=== PATIENT | female | born 1950 | race Caucasian/White ===

== ENCOUNTER → 2017-03-02 | Outpatient (CLI) | payer MEDICARE, OTHER ==
--- NOTE | 2017-03-02 16:07 | RAD ---
DATE: 03/02/2017 EXAM: DIGITAL SCREEN BILAT W/CAD HISTORY: Baseline asymptomatic screening mammogram. COMPARISON: None available. Baseline examination. This study was interpreted with the benefit of Computerized Aided Detection (CAD). The breast parenchyma is primarily fatty replaced. Breast parenchyma level density A. FINDINGS: Bilateral CC and MLO views of the breasts were performed. Right breast: There is a focal asymmetry in the lateral right breast along the posterior nipple line on MLO view. Additional views are recommended including a spot compression CC and MLO view with possible ultrasound. Left breast: There are no suspicious microcalcifications, masses or areas of architectural distortion. IMPRESSION: 1. Incomplete right mammogram. Additional views are recommended including a spot compression CC and MLO view with possible ultrasound. 2. Negative left mammogram. BI-RADS CATEGORY: 0 INCOMPLETE: NEEDS ADDITIONAL IMAGING EVALUATION AND/OR PRIOR MAMMOGRAMS FOR COMPARISON. RECOMMENDED FOLLOW-UP: ADD ADDITIONAL IMAGING PQRS compliance statement: Mammography is a sensitive method for finding small breast cancers, but it does not detect them all and is not a substitute for careful clinical examination. A negative mammogram does not negate a clinically suspicious finding and should not result in delay in biopsying a clinically suspicious abnormality. "Our facility is accredited by the [employer] Mammography Program."
== END | disposition home or self-care (01) ==
LOC: MAMMO 15:39
PROVIDERS: ATTEND Family Medicine
DX: Z12.31 Encounter for screening mammogram for malignant neoplasm of breast (principal)
CPT/HCPCS: G0202; 77067

== ENCOUNTER → 2017-03-24 | Outpatient (CLI) | payer MEDICARE, OTHER ==
--- NOTE | 2017-03-24 15:46 | RAD ---
DATE: 03/24/2017 EXAM: DIGITAL DIAGNOSTIC RT, BREAST RIGHT HISTORY: Possible abnormality seen on screening 03/02/2017 COMPARISON: 03/02/2017 FINDINGS: Breast Density: The breast density is unchanged relative to the screening exam Multiple additional views including cone compression views and rolled cc views and an ML view were obtained. On the additional views an area of increased density persists but this does not have a masslike appearance and likely reflects glandular elements. Targeted ultrasound was performed no abnormality is seen in the area of the nodular opacity. IMPRESSION: Probable benign findings. Follow-up mammography of the right breast is suggested in 6 months to further document stability BI-RADS CATEGORY: 3 PROBABLE BENIGN FINDING(S-SHORT INTERVAL FOLLOW-UP SUGGESTED RECOMMENDED FOLLOW-UP: 6M 6 MONTH FOLLOW-UP PQRS compliance statement: Patient information was entered into a reminder system with a target due date 09/21/2017 for the next mammogram. Mammography is a sensitive method for finding small breast cancers, but it does not detect them all and is not a substitute for careful clinical examination. A negative mammogram does not negate a clinically suspicious finding and should not result in delay in biopsying a clinically suspicious abnormality. "Our facility is accredited by the [employer] Mammography Program." MTDD
== END | disposition home or self-care (01) ==
LOC: MAMMO 13:21
PROVIDERS: ATTEND Family Medicine
DX: R92.8 Other abnormal and inconclusive findings on diagnostic imaging of breast (principal)
CPT/HCPCS: 76641; G0206; 77065

== ENCOUNTER → 2017-06-23 | Day surgery (SDC) | payer MEDICARE, OTHER ==
[~2017-06-23] MED LIST: AMLO10TA2 PO; APIX5TAB PO; ATOR40TA59 PO; CHOL10003 PO; DILT120C80 PO; EMPA25TA PO; HYDROmorphone 2 MG/ML VIAL IV PRN; IV RINGERS,LACTATED 1000ML 1,000 ML IV SCH; LIDOCAINE 1% PF 2 ML VIAL. ID PRN; LIDOCAINE 2% PF Vial for OR 5 ML VIAL. ONE; LISI-334 PO; METF850T2 PO; METO-239 PO; MORPHINE SULFATE 2 MG/ML DISP.SYRIN. IV PRN; ONDANSETRON PF 4 MG/2 ML VIAL. IV PRN; PROCHLORPERAZINE 10 MG/2 ML VIAL. IV PRN; PROPOFOL 40 ML IV ONE; fentaNYL PF VIAL 100 MCG/2 ML VIAL IV PRN
[2017-06-23 08:56] VITALS: BP 96/64
--- NOTE | 2017-06-23 13:53 | CONS ---
DATE OF CONSULTATION: 06/23/2017 REFERRING PHYSICIAN: Dr. Hughes. HISTORY OF PRESENT ILLNESS: A 66-year-old female with past medical history significant for hypertension, hyperlipidemia, diabetes who is seen for a screening colonoscopy. Bowel habits are regular without diarrhea or constipation and melena and/or constipation. Weight and appetite are stable. She is otherwise without additional complaints. PAST MEDICAL HISTORY: Diabetes, hypertension, hyperlipidemia. FAMILY HISTORY: Significant for breast cancer, hypertension, MIs with parents and breast cancer with sibling. She is a former smoker. She is a social drinker. PAST SURGICAL HISTORY: Status post tonsillectomy. REVIEW OF SYSTEMS: Per records. PHYSICAL EXAMINATION: GENERAL: A well-nourished, well-developed female. VITAL SIGNS: Temperature is 97.6, pulse 82, respirations 20. HEENT: Normocephalic and atraumatic. Pupils and extraocular not tested. Anicteric. NECK: Supple. LUNGS: Clear. CARDIOVASCULAR: Reveals an S1, S2 without S3, S4 or appreciable murmur. ABDOMEN: Soft abdomen, normal bowel sounds. No appreciable splenomegaly. EXTREMITIES: Reveals no cyanosis, clubbing, edema. IMPRESSION: Colorectal screening is warranted at this time. Risks and benefits of the procedure had been previously discussed including risk of hemorrhage or perforation. She is willing to proceed. DREW WHATLEY MD DR: CHLOÉ/suyapa JOB#: [id number] / [id number]
--- NOTE | 2017-06-24 14:31 | PATHOLOGY ---
PATHOLOGY REPORT * * * * * * * * FINAL DIAGNOSIS: Colon biopsies, transverse colon polyp: - Tubular adenoma. (JPM:hodan; 06/24/2017) COMMENT: There is no high-grade dysplasia or evidence of malignancy. REPORT ELECTRONICALLY SIGNED BY: Jer Berg M.D. DATE/TIME: 06/24/2017 14:31 * * * * * * * * GROSS PATHOLOGY: Received in formalin labeled "Jarrdo Alanis transverse colon polyp," are 2 segments of balbuena soft tissue measuring 0.8 x 0.4 x 0.3 cm in aggregate dimensions and ranging from 0.3 to 0.6 cm in maximum dimension. The specimen is submitted entirely in cassette A1. (TSD; 06/23/2017) INITIAL CPT CODE(S): A; 73337 Professional services performed by [facility] [place] [address] Technical services performed by [facility] at [address] [place] [address]. SPECIMEN(S) RECEIVED: A.Transverse colon polyp CLINICAL HISTORY: Screening; polyp PATIENT: JARROD ALANIS /AGE: 5 1950 (Age: 66) PATIENT #: [id number] ALT CASE #: SPECIMEN COLLECTION DATE: 06/23/2017 SPECIMEN RECEIVED DATE: 06/23/2017 [facility] - [address] [place] [address] - PHONE: [phone] * * * END OF REPORT * * *
== END | disposition home or self-care (01) ==
LOC: ENDOS 06:30
PROVIDERS: ATTEND Internal Medicine Gastroenterology
DX: Z12.11 Encounter for screening for malignant neoplasm of colon (principal); D12.3 Benign neoplasm of transverse colon; K64.0 First degree hemorrhoids; K57.30 Diverticulosis of large intestine without perforation or abscess without bleeding; E78.00 Pure hypercholesterolemia, unspecified; I10 Essential (primary) hypertension; E11.9 Type 2 diabetes mellitus without complications; Z86.39 Personal history of other endocrine, nutritional and metabolic disease
CPT/HCPCS: 88305; J2704; J2001

== ENCOUNTER → 2017-07-30 | Outpatient (CLI) | payer MEDICARE, OTHER ==
[2017-07-30] MEDS: REGADENOSON 0.4 MG/5 ML DISP.SYRIN. IV (10:43)
== END | disposition home or self-care (01) ==
LOC: NM 14:34
DX: I48.91 Unspecified atrial fibrillation (principal); I10 Essential (primary) hypertension; E11.9 Type 2 diabetes mellitus without complications; Z87.891 Personal history of nicotine dependence; Z79.01 Long term (current) use of anticoagulants
CPT/HCPCS: 78452; 93017; 96374; 96375; 96376; A9500; J2785

== ENCOUNTER 2017-08-30 10:36 | Day surgery (SDC) | payer MEDICARE, OTHER ==
[~2017-08-30 10:36] MED LIST changes: -AMLO10TA2 PO; -APIX5TAB PO; -ATOR40TA59 PO; +BENZOCAINE ONE 20% MUCOSAL SPRAY.; +BENZOCAINE ONE 20% MUCOSAL SPRAY. MM; -CHOL10003 PO; -DILT120C80 PO; -EMPA25TA PO; +HYDROmorphone 2 MG/ML VIAL IV; -HYDROmorphone 2 MG/ML VIAL IV PRN; -IV RINGERS,LACTATED 1000ML 1,000 ML IV SCH; +LIDOCAINE 1% PF 2 ML VIAL. ID; -LIDOCAINE 1% PF 2 ML VIAL. ID PRN; -LIDOCAINE 2% PF Vial for OR 5 ML VIAL. ONE; +LIDOCAINE 2% TOPICAL JELLY 5GM TUBE. TP; +LIDOCAINE 2% VISCOUS 15 ML SOLUTION.; +LIDOCAINE 2% VISCOUS 15 ML SOLUTION. SWSW; -LISI-334 PO; -METF850T2 PO; -METO-239 PO; +MORPHINE SULFATE 2 MG/ML DISP.SYRIN. IV; -MORPHINE SULFATE 2 MG/ML DISP.SYRIN. IV PRN; -ONDANSETRON PF 4 MG/2 ML VIAL. IV PRN; +PROCHLORPERAZINE 10 MG/2 ML VIAL. IV; -PROCHLORPERAZINE 10 MG/2 ML VIAL. IV PRN; -PROPOFOL 40 ML IV ONE; +fentaNYL PF VIAL 100 MCG/2 ML VIAL IV; -fentaNYL PF VIAL 100 MCG/2 ML VIAL IV PRN
[2017-08-30] MEDS: IV RINGERS,LACTATED 1000ML 1,000 ML IV ×2 (11:20)
[2017-08-30 11:27] LABS: ANION GAP 11 (6-14); BLOOD UREA NITROGEN 19 mg/dL (7-20); CARBON DIOXIDE 25 mmol/L (21-32); CHLORIDE 105 mmol/L (98-107); CREATININE 0.8 mg/dL (0.6-1.0); GFR 71.8; GLUCOSE 143 mg/dL (70-99); MAGNESIUM 1.6 mg/dL (1.8-2.4); POTASSIUM 4.3 mmol/L (3.5-5.1); SODIUM 141 mmol/L (136-145)
[2017-08-30] MEDS ORDERED: PROPOFOL 20 ML IV ×2 (11:27)
[2017-08-30] MEDS ORDERED: LIDOCAINE 2% PF Vial for OR 5 ML VIAL. ×2 (11:27)
[2017-08-30 11:45] LABS: INR 1.3 (0.8-1.1); PROTHROMBIN TIME PATIENT 15.1 SEC (11.7-14.0)
[2017-08-30] MEDS ORDERED: ePHEDrine PF IN SALINE 50 MG/5 ML DISP.SYRIN IV (12:00)
== END 2017-08-30 13:12 | disposition home or self-care (01) ==
LOC: SURG 10:36
DX: I48.91 Unspecified atrial fibrillation (principal); E78.00 Pure hypercholesterolemia, unspecified; I10 Essential (primary) hypertension; E66.9 Obesity, unspecified; E11.9 Type 2 diabetes mellitus without complications; Z87.891 Personal history of nicotine dependence; Z87.39 Personal history of other diseases of the musculoskeletal system and connective tissue; Z86.39 Personal history of other endocrine, nutritional and metabolic disease
CPT/HCPCS: 36415; 80048; 83735; 85610; 93005; J2704

== ENCOUNTER → 2017-09-27 | Outpatient (CLI) | payer MEDICARE, OTHER | END | disposition home or self-care (01) | LOC: MAMMO 09:23 | DX: R92.8 Other abnormal and inconclusive findings on diagnostic imaging of breast (principal) | CPT/HCPCS: 77065; G0279 ==

== ENCOUNTER 2018-01-21 08:28 | Inpatient (IN) | payer MEDICARE, OTHER ==
[2018-01-21 09:02] LABS: ADD MAN DIFF? NO
[2018-01-21 09:06] LABS: BASO # 0.1 x10^3/uL (0.0-0.2); BASO % 1 % (0-3); EOS # 0.5 x10^3/uL (0.0-0.7); EOS % 6 % (0-3); HEMATOCRIT 44.3 % (36.0-47.0); HEMOGLOBIN 14.8 g/dL (12.0-15.5); LYMPH % 27 % (24-48); MEAN CORPUSCULAR HEMOGLOBIN 32 pg (25-35); MEAN CORPUSCULAR HGB CONC 33 g/dL (31-37); MEAN CORPUSCULAR VOLUME 97 fL (79-100); MONO # 0.5 x10^3/uL (0.0-1.1); MONO % 7 % (0-9); NEUT # 4.3 x10^3uL (1.8-7.7); NEUT % 58 % (31-73); PLATELET COUNT 191 x10^3/uL (140-400); RED BLOOD COUNT 4.57 x10^6/uL (3.50-5.40); RED CELL DISTRIBUTION WIDTH 13.7 % (11.5-14.5); WHITE BLOOD COUNT 7.4 x10^3/uL (4.0-11.0)
[2018-01-21 09:14] LABS: ANION GAP 6 (6-14); BLOOD UREA NITROGEN 15 mg/dL (7-20); CALCIUM 9.1 mg/dL (8.5-10.1); CARBON DIOXIDE 29 mmol/L (21-32); CHLORIDE 103 mmol/L (98-107); CREATININE 0.9 mg/dL (0.6-1.0); GFR 62.5; GLUCOSE 170 mg/dL (70-99); POTASSIUM 4.4 mmol/L (3.5-5.1); SODIUM 138 mmol/L (136-145)
[2018-01-21 09:23] LABS: TROPONINI < 0.017 ng/mL (0.000-0.055)
[2018-01-21] MEDS ORDERED: hydrALAZINE 20 MG/ML VIAL. IVP (11:00)
[2018-01-21] MEDS: LISINOPRIL 20 MG TABLET PO (12:00)
[2018-01-21] MEDS: ASPIRIN ENTERIC COATED 81 MG TABLET.DR. PO (12:00)
[2018-01-21 12:05] LABS: THYROID STIM HORMONE (TSH) 2.751 uIU/mL (0.358-3.74)
[2018-01-21] MEDS: INSULIN LISPRO 300 UNITS/3 ML INSULN.PEN. SQ ×2 (16:30→20:59)
[2018-01-21 17:05] LABS: TROPONINI < 0.017 ng/mL (0.000-0.055)
[2018-01-21 17:30] LABS: POC GLUCOSE 113 mg/dL (70-99)
[2018-01-21 20:54] LABS: POC GLUCOSE 111 mg/dL (70-99)
[2018-01-21] MEDS: ATORVASTATIN CALCIUM 40 MG TABLET. PO (20:58)
[2018-01-21] MEDS ORDERED: ATORVASTATIN CALCIUM 40 MG TABLET. PO (21:00)
[2018-01-22 05:01] LABS: ADD MAN DIFF? NO
[2018-01-22 05:23] LABS: BASO # 0.1 x10^3/uL (0.0-0.2); BASO % 1 % (0-3); EOS # 0.3 x10^3/uL (0.0-0.7); EOS % 5 % (0-3); HEMATOCRIT 38.8 % (36.0-47.0); HEMOGLOBIN 12.8 g/dL (12.0-15.5); LYMPH # 2.1 x10^3/uL (1.0-4.8); LYMPH % 34 % (24-48); MEAN CORPUSCULAR HEMOGLOBIN 32 pg (25-35); MEAN CORPUSCULAR HGB CONC 33 g/dL (31-37); MEAN CORPUSCULAR VOLUME 97 fL (79-100); MONO # 0.5 x10^3/uL (0.0-1.1); MONO % 8 % (0-9); NEUT # 3.2 x10^3uL (1.8-7.7); NEUT % 52 % (31-73); PLATELET COUNT 151 x10^3/uL (140-400); RED BLOOD COUNT 4.01 x10^6/uL (3.50-5.40); RED CELL DISTRIBUTION WIDTH 13.6 % (11.5-14.5); WHITE BLOOD COUNT 6.2 x10^3/uL (4.0-11.0)
[2018-01-22 05:39] LABS: ANION GAP 6 (6-14); BLOOD UREA NITROGEN 16 mg/dL (7-20); CALCIUM 9.1 mg/dL (8.5-10.1); CARBON DIOXIDE 30 mmol/L (21-32); CHLORIDE 105 mmol/L (98-107); CREATININE 0.7 mg/dL (0.6-1.0); GFR 83.5; GLUCOSE 96 mg/dL (70-99); POTASSIUM 4.1 mmol/L (3.5-5.1); SODIUM 141 mmol/L (136-145)
[2018-01-22] MEDS: INSULIN LISPRO 300 UNITS/3 ML INSULN.PEN. SQ ×4 (07:30→20:37)
[2018-01-22 08:18] LABS: POC GLUCOSE 107 mg/dL (70-99)
[2018-01-22] MEDS: LISINOPRIL 20 MG TABLET PO (09:11)
[2018-01-22] MEDS: CHOLECALCIFEROL (VITAMIN D3) 1,000 UNIT TABLET PO (09:11)
[2018-01-22] MEDS: ASPIRIN ENTERIC COATED 81 MG TABLET.DR. PO (09:11)
[2018-01-22 09:29] LABS: MAGNESIUM 1.8 mg/dL (1.8-2.4)
[2018-01-22] MEDS ORDERED: ceFAZolin 2GM PREMIX 2 GM/50 ML BAG IV (11:00)
[2018-01-22 12:42] LABS: POC GLUCOSE 108 mg/dL (70-99)
[2018-01-22 17:02] LABS: POC GLUCOSE 92 mg/dL (70-99)
[2018-01-22] MEDS: ATORVASTATIN CALCIUM 40 MG TABLET. PO ×2 (20:36→20:40)
[2018-01-22 20:58] LABS: POC GLUCOSE 102 mg/dL (70-99)
[2018-01-22] MEDS: DIGOXIN IV 500 MCG/2 ML AMPUL. IV (22:14)
[2018-01-23] MEDS: METOPROLOL TART IMMED RELEASE 25 MG TABLET. PO ×4 (01:47→18:01)
[2018-01-23] MEDS: INSULIN LISPRO 300 UNITS/3 ML INSULN.PEN. SQ ×4 (07:30→20:49)
[2018-01-23 08:34] LABS: POC GLUCOSE 101 mg/dL (70-99)
[2018-01-23] MEDS: CHOLECALCIFEROL (VITAMIN D3) 1,000 UNIT TABLET PO (08:45)
[2018-01-23] MEDS: ASPIRIN ENTERIC COATED 81 MG TABLET.DR. PO (08:46)
[2018-01-23] MEDS: LISINOPRIL 20 MG TABLET PO (08:46)
[2018-01-23 11:36] LABS: POC GLUCOSE 113 mg/dL (70-99)
[2018-01-23 17:32] LABS: POC GLUCOSE 89 mg/dL (70-99)
[2018-01-23] MEDS: ATORVASTATIN CALCIUM 40 MG TABLET. PO (20:49)
[2018-01-23 20:52] LABS: POC GLUCOSE 112 mg/dL (70-99)
[2018-01-24] MEDS: METOPROLOL TART IMMED RELEASE 25 MG TABLET. PO ×4 (06:00→18:00)
[2018-01-24] MEDS: INSULIN LISPRO 300 UNITS/3 ML INSULN.PEN. SQ ×4 (07:30→21:00)
[2018-01-24 08:05] LABS: POC GLUCOSE 104 mg/dL (70-99)
[2018-01-24] MEDS: ASPIRIN ENTERIC COATED 81 MG TABLET.DR. PO (09:38)
[2018-01-24] MEDS: METOPROLOL TARTRATE 5 MG/5 ML VIAL. IVP ×2 (09:39→15:10)
[2018-01-24 10:28] LABS: PROTHROMBIN TIME PATIENT 12.8 SEC (11.7-14.0)
[2018-01-24 12:13] LABS: POC GLUCOSE 111 mg/dL (70-99)
[2018-01-24] MEDS ORDERED: LIDOCAINE 2%/EPI 1:100,000 20 ML VIAL. (13:02)
[2018-01-24] MEDS ORDERED: MIDAZOLAM HCL/PF 5 MG/5 ML VIAL. (13:44)
[2018-01-24] MEDS ORDERED: fentaNYL PF VIAL 250 MCG/5 ML VIAL (13:45)
[2018-01-24] MEDS ORDERED: METOPROLOL TARTRATE 5 MG/5 ML VIAL. ×2 (13:52→14:31)
[2018-01-24] MEDS ORDERED: DIGOXIN IV 500 MCG/2 ML AMPUL. (14:15)
[2018-01-24] MEDS: LIDOCAINE 2%/EPI 1:100,000 20 ML VIAL. IJ (15:09)
[2018-01-24] MEDS: BACITRACIN 50,000 UNIT in IV NORMAL SALINE 250ML 250 ML IRR (15:09)
[2018-01-24] MEDS: MIDAZOLAM HCL/PF 5 MG/5 ML VIAL. IV (15:10)
[2018-01-24] MEDS: fentaNYL PF VIAL 250 MCG/5 ML VIAL IV (15:10)
[2018-01-24] MEDS: DIGOXIN IV 500 MCG/2 ML AMPUL. IV (15:11)
[2018-01-24] MEDS: CHOLECALCIFEROL (VITAMIN D3) 1,000 UNIT TABLET PO (16:18)
[2018-01-24] MEDS: LISINOPRIL 20 MG TABLET PO (16:18)
[2018-01-24] MEDS ORDERED: NO ANTICOAGULANT THERAPY. MC (16:45)
[2018-01-24 21:02] LABS: POC GLUCOSE 123 mg/dL (70-99)
[2018-01-24] MEDS: ATORVASTATIN CALCIUM 40 MG TABLET. PO (21:20)
[2018-01-24] MEDS: oxyCODONE/APAP 5/325 1 TAB TABLET PO (21:21)
[2018-01-25] MEDS: METOPROLOL TART IMMED RELEASE 25 MG TABLET. PO ×2 (00:38→06:38)
[2018-01-25] MEDS: oxyCODONE/APAP 5/325 1 TAB TABLET PO ×2 (03:53→10:24)
[2018-01-25] MEDS: INSULIN LISPRO 300 UNITS/3 ML INSULN.PEN. SQ (07:30)
[2018-01-25 08:02] LABS: POC GLUCOSE 112 mg/dL (70-99)
[2018-01-25] MEDS: ASPIRIN ENTERIC COATED 81 MG TABLET.DR. PO (08:31)
[2018-01-25] MEDS: CHOLECALCIFEROL (VITAMIN D3) 1,000 UNIT TABLET PO (08:32)
[2018-01-25] MEDS: LISINOPRIL 20 MG TABLET PO (08:32)
[2018-01-25] MEDS: metFORMIN XR 500 MG TAB.ER.24H PO (08:34)
[2018-01-25 11:55] LABS: POC GLUCOSE 113 mg/dL (70-99)
== END 2018-01-25 13:45 | disposition home or self-care (01) | DRG 243 ==
LOC: ER 08:28 → 2 NORTH 10:00
PROC: 0JH606Z Insertion of Pacemaker, Dual Chamber into Chest Subcutaneous Tissue and Fascia, Open Approach (ICD-10-PCS; principal; 2018-01-24)
PROC: 02H63JZ Insertion of Pacemaker Lead into Right Atrium, Percutaneous Approach (ICD-10-PCS; 2018-01-24)
PROC: 02HK3JZ Insertion of Pacemaker Lead into Right Ventricle, Percutaneous Approach (ICD-10-PCS; 2018-01-24)
DX: I49.5 Sick sinus syndrome (principal); I48.1 Persistent atrial fibrillation; I44.1 Atrioventricular block, second degree; I10 Essential (primary) hypertension; E11.9 Type 2 diabetes mellitus without complications; I25.10 Atherosclerotic heart disease of native coronary artery without angina pectoris; F32.9 Major depressive disorder, single episode, unspecified; F41.9 Anxiety disorder, unspecified; E66.9 Obesity, unspecified; M10.9 Gout, unspecified; M19.90 Unspecified osteoarthritis, unspecified site; E78.5 Hyperlipidemia, unspecified; Z95.5 Presence of coronary angioplasty implant and graft; Z79.01 Long term (current) use of anticoagulants; Z79.899 Other long term (current) drug therapy; I25.2 Old myocardial infarction; Z68.30 Body mass index [BMI] 30.0-30.9, adult; Z82.49 Family history of ischemic heart disease and other diseases of the circulatory system; Z87.891 Personal history of nicotine dependence
CPT/HCPCS: 33217; 36415; 71045; 71046; 80048; 82962; 83735; 84443; 84484; 85025; 85610; 93005; 99152; 99153; 99285; 99285-25; C1785; C1898; J0690; J1160; J1815; J2250; J3010; J3490; J7050

== ENCOUNTER → 2018-04-13 | Outpatient (CLI) | payer MEDICARE, OTHER ==
[2018-01-24 23:10] VITALS: BP 122/70
[~2018-04-13] MED LIST changes: +AMLO10TA6 PO; +APIX5TAB PO; +ASPI-612 PO; +ATOR40TA59 PO; -BENZOCAINE ONE 20% MUCOSAL SPRAY.; -BENZOCAINE ONE 20% MUCOSAL SPRAY. MM; +CHOL10003 PO; +DILT120C80 PO; +EMPA25TA PO; +FLEC100T PO; -HYDROmorphone 2 MG/ML VIAL IV; -LIDOCAINE 1% PF 2 ML VIAL. ID; -LIDOCAINE 2% TOPICAL JELLY 5GM TUBE. TP; -LIDOCAINE 2% VISCOUS 15 ML SOLUTION.; -LIDOCAINE 2% VISCOUS 15 ML SOLUTION. SWSW; +LISI-334 PO; +METF750T PO; +METF850T8 PO; +METO-239 PO; +METO-247 PO; -MORPHINE SULFATE 2 MG/ML DISP.SYRIN. IV; +OXYC1TAB7 PO; -PROCHLORPERAZINE 10 MG/2 ML VIAL. IV; +RIVA20TA2 PO; -fentaNYL PF VIAL 100 MCG/2 ML VIAL IV
--- NOTE | 2018-04-14 08:32 | RAD ---
DATE: 04/13/2018 bilateral diagnostic mammogram exam EXAM: MAMMO SUMEET DIAG BILAT HISTORY: Six-month follow-up of right breast asymmetry COMPARISON: 03/02/2017 screen mammographic exam, right unilateral diagnostic mammogram exam 03/24/2017, 09/27/2017) lateral diagnostic mammographic This study was interpreted with the benefit of Computerized Aided Detection (CAD ). Breast Density: SCATTERED The breast parenchyma shows scattered fibroglandular densities. Breast parenchyma level B. FINDINGS: Parenchymal distribution is stable. No significant change involving the right upper outer breast. No mass or distortion in the interval. No suspicious calcifications in the interval. Right axillary level lymph node is suggested but stable and benign in appearance. IMPRESSION: BI-RADS CATEGORY: 2 BENIGN FINDING(S) RECOMMENDED FOLLOW-UP: PQRS compliance statement: Patient information was entered into a reminder system with a target due date in 1 year for the next mammogram. Mammography is a sensitive method for finding small breast cancers, but it does not detect them all and is not a substitute for careful clinical examination. A negative mammogram does not negate a clinically suspicious finding and should not result in delay in biopsying a clinically suspicious abnormality. "Our facility is accredited by the [employer] Mammography Program." MTDD
== END | disposition home or self-care (01) ==
LOC: MAMMO 09:21
PROVIDERS: ATTEND Family Medicine
DX: R92.8 Other abnormal and inconclusive findings on diagnostic imaging of breast (principal)
CPT/HCPCS: 77066; G0279; 77062

== ENCOUNTER → 2019-02-28 | Day surgery (SDC) | payer MEDICARE ==
[~2019-02-28] VITALS: Ht 167.6 cm; Wt 107.0 kg
[~2019-02-28] MED LIST changes: -AMLO10TA6 PO; +AMLO10TA8 PO; +BUPIVAC MPF-EPI 0.5%-1:200000 30 ML VIAL. INJ ONE; +BUPIVACAINE MPF 0.25% 30 ML VIAL. ONE; +BUPIVACAINE-EPI 0.25%-1:200000 MPF 30 ML VIAL. INJ ONE; +DILT120C71 PO; -DILT120C80 PO; +DILT120C85 PO; +HYDR-3164 PO; +HYDROmorphone 2 MG/ML VIAL IV PRN; +INSULIN LISPRO 100 UNIT/ML 3ML VIAL for OP,RR ONLY. SQ PRN; +IV RINGERS,LACTATED 1000ML 1,000 ML IV SCH; +LIDOCAINE 1% 20 ML VIAL. ONE; +LIDOCAINE 2% PF 5 ML VIAL. ONE; +METO100T7 PO; +MIDAZOLAM HCL/PF 2 MG/2 ML VIAL. ONE; +MORPHINE SULFATE 2 MG/ML VIAL. IV PRN; +ONDANSETRON PF 4 MG/2 ML VIAL. IV PRN; +PROCHLORPERAZINE 10 MG/2 ML VIAL. IV PRN; +fentaNYL PF VIAL 100 MCG/2 ML VIAL IV PRN; +fentaNYL PF VIAL 100 MCG/2 ML VIAL ONE
--- NOTE | 2019-02-28 09:55 | DISCH ---
DISCHARGE INSTRUCTIONS Condition on Discharge Condition on Discharge: Stable Activity After Discharge Activity Instructions for Disc: Other, see below (avoid hard grasping with right hand, fine motor use permitted such as using silverware typing and writing etc.) Weight Bearing Status after Di: As tolerated Diet after Discharge Diet after Discharge: Cardiac, Diabetic No Calorie Level Wound Incision Care Wound/Incision Care: Ice to area for comfort, Keep wound elevated, Do not change dressing Contacting the [facility] after DC Call your doctor for: Concerns you may have Follow-Up Follow up with: Dr. Sotelo 10 days Treatment/Equipment after DC Adaptive Equipment Issued: None ROHAN SOTELO MD Feb 28, 2019 09:55
--- NOTE | 2019-02-28 10:26 | PDOC4 ---
Operative Note Operative Note Date of surgery: 02/28/2019 Preoperative diagnosis: Right carpal tunnel syndrome and right trigger thumb Postoperative diagnosis: Same with moderate median nerve compression and some fraying flexor tendon right thumb Operative procedure: Right carpal tunnel release, right trigger thumb release Surgeon: Ashleigh Anesthesia: [place] block Cemented blood loss 2 mL Complications: None Operative indications: Please see my preoperative clinic evaluation for detailed operative indications and note that Anna has had ongoing carpal tunnel symptoms verified by EMG unresponsive to nonoperative management and off-and-on painful triggering of her right thumb. We had discussed operative and nonoperative treatment options for each including the pathophysiology of each and the possibility of nerve or blood vessel damage incomplete relief infection medical or other anesthetic competitions among other she agrees to proceed with surgical evaluation and treatment having given informed consent. Operative text: Patient was identified procedure verified patient placed in the supine position on the table. After adequate amounts of Adeola block anesthesia were administered the right upper extremity was prepped and draped in standard sterile fashion and after timeout was performed a midline incision was made distal to the distal palmar crease dissection carried out to the transverse carpal ligament which was divided longitudinally under direct visualization and verified complete release by palpation. Median nerve was noted to have moderate compression no synovitis of the flexor tendons in the carpal tunnel. Attention was then turned to the base of the right thumb where a small transverse incision was made her vascular tunnels were isolated and protected and a longitudinal incision was made dividing the A1 flexor vanessa. She was noted to have some mild fraying of the flexor tendon itself but did not require repair triggering was completely eliminated thorough irrigation carried out normal saline solution closure accomplished with nylon suture in a mattress fashion sterile dressings were applied fingers were noted be warm pink find deflation of tourniquet patient was returned recovery room in stable condition having tolerated procedure well ROHAN GANT MD Feb 28, 2019 10:26
[2019-02-28 11:10] VITALS: BP 169/96
== END ==
LOC: SURG 07:31
PROVIDERS: ATTEND Orthopaedic Surgery
DX: G56.01 Carpal tunnel syndrome, right upper limb (principal); M65.311 Trigger thumb, right thumb; Z79.899 Other long term (current) drug therapy
CPT/HCPCS: 26055; 64721; 82962; J0696; J2001; J2250; J3010; J3490

== ENCOUNTER → 2019-04-12 | Outpatient (CLI) | payer MEDICARE ==
[2019-02-28 11:10] VITALS: BP 169/96
[~2019-04-12] MED LIST changes: -BUPIVAC MPF-EPI 0.5%-1:200000 30 ML VIAL. INJ ONE; -BUPIVACAINE MPF 0.25% 30 ML VIAL. ONE; -BUPIVACAINE-EPI 0.25%-1:200000 MPF 30 ML VIAL. INJ ONE; -HYDROmorphone 2 MG/ML VIAL IV PRN; -INSULIN LISPRO 100 UNIT/ML 3ML VIAL for OP,RR ONLY. SQ PRN; -IV RINGERS,LACTATED 1000ML 1,000 ML IV SCH; -LIDOCAINE 1% 20 ML VIAL. ONE; -LIDOCAINE 2% PF 5 ML VIAL. ONE; -MIDAZOLAM HCL/PF 2 MG/2 ML VIAL. ONE; -MORPHINE SULFATE 2 MG/ML VIAL. IV PRN; -ONDANSETRON PF 4 MG/2 ML VIAL. IV PRN; -PROCHLORPERAZINE 10 MG/2 ML VIAL. IV PRN; -fentaNYL PF VIAL 100 MCG/2 ML VIAL IV PRN; -fentaNYL PF VIAL 100 MCG/2 ML VIAL ONE
--- NOTE | 2019-04-14 16:34 | RAD ---
DATE: 04/12/2019 EXAM: MAMMO SUMEET SCREENING BILATERAL HISTORY: Routine screening COMPARISON: 03/02/2017 and 04/13/2018 mammographic exams This study was interpreted with the benefit of Computerized Aided Detection (CAD). Breast Density: SCATTERED The breast parenchyma shows scattered fibroglandular densities. Breast parenchyma level B. FINDINGS: Small masses are stable. No suspicious calcifications, dominant masses, or distortion in the interval. IMPRESSION: Stable BI-RADS CATEGORY: 1 NEGATIVE RECOMMENDED FOLLOW-UP: 12M 12 MONTH FOLLOW-UP PQRS compliance statement: Patient information was entered into a reminder system with a target due date for the next mammogram. Mammography is a sensitive method for finding small breast cancers, but it does not detect them all and is not a substitute for careful clinical examination. A negative mammogram does not negate a clinically suspicious finding and should not result in delay in biopsying a clinically suspicious abnormality. "Our facility is accredited by the [employer] Mammography Program."
== END | disposition home or self-care (01) ==
LOC: MAMMO 07:41
PROVIDERS: ATTEND Family Medicine
DX: Z12.31 Encounter for screening mammogram for malignant neoplasm of breast (principal)
CPT/HCPCS: 77063; 77067

== ENCOUNTER → 2020-04-15 | Outpatient (CLI) | payer MEDICARE ==
[2019-02-28 11:10] VITALS: BP 169/96
[~2020-04-15] MED LIST changes: -ASPI-612 PO; +ASPI-886 PO; -DILT120C85 PO; +DILT120C99 PO
--- NOTE | 2020-04-16 08:44 | RAD ---
BILATERAL SCREENING MAMMOGRAM, 3-D History: Routine screening. Comparison: 03/02/2017, 04/13/2018, 04/12/2019. Technique: MLO and CC digital tomosynthesis (3D) images obtained. Radiologist reviewed these images on dedicated workstation. Findings: Breast Tissue Density B : There are scattered areas of fibroglandular density. There are no dominant masses, suspicious microcalcifications, or architectural distortion. IMPRESSION: No mammographic evidence of malignancy. Recommend routine screening. BI-RADS category 1: Negative. The images were reviewed with computer-aided detection. Patient information is entered into reminder system with a target due date for the next screening mammogram. Mammography is the most sensitive method for finding small breast cancers, but it does not detect them all and is not a substitute for careful clinical examination. A negative mammogram does not negate a clinically suspicious finding and should not result in delay in biopsying a clinically suspicious abnormality. "Our facility is accredited by the [employer] Mammography Program." Electronically signed by: Andrew Mas MD (04/16/2020 8:41 AM) [facility]
== END | disposition home or self-care (01) ==
LOC: MAMMO 09:37
PROVIDERS: ATTEND Family Medicine
DX: Z12.31 Encounter for screening mammogram for malignant neoplasm of breast (principal)
CPT/HCPCS: 77063; 77067

== ENCOUNTER → 2020-10-28 | Outpatient (CLI) | payer MEDICARE ==
[2019-02-28 11:10] VITALS: BP 169/96
[~2020-10-28] MED LIST changes: +AMLO-187 PO; -AMLO10TA8 PO; -LISI-334 PO; +LISI20TA18 PO
--- NOTE | 2020-10-28 12:55 | CARD ---
MR#: [id number] Date of Study: 10/28/2020 Ordering Physician: JACKIE POON, Referring Physician: JACKIE POON, Tech: Tianna Strong, [facility] APPROVED REPORT EXAM: Two-dimensional and M-mode echocardiogram with Doppler and color Doppler. Other Information Quality : AverageHR: 60bpm Technically limited study due to body habitus. INDICATION Atrial Fibrillation Surgery/Intervention Pacemaker: Date: 2017 RISK FACTORS Hypertension Hyperlipidemia Diabetes 2D DIMENSIONS RVDd2.5 (2.9-3.5cm)Left Atrium(2D)3.7 (1.6-4.0cm) IVSd1.1 (0.7-1.1cm)Aortic Root(2D)3.0 (2.0-3.7cm) LVDd5.5 (3.9-5.9cm)LVOT Diameter2.0 (1.8-2.4cm) PWd1.0 (0.7-1.1cm)LVDs2.3 (2.5-4.0cm) FS (%) 58.1 %SV127.5 ml Aortic Valve AoV Peak Norris.147.0cm/sAoV VTI30.9cm AO Peak GR.8.6mmHgAO Mean GR.5mmHg Mitral Valve MV E Orakmovv65.8cm/sMV DECEL HSWW130zl MV A Wogvfaxe540.5cm/sMV GHM414bf E/A Ratio0.9MVA (PHT)2.14cm2 TDI E/Lateral E'15.0E/Medial E'16.4 Pulmonary Valve PV Peak Ulhoxtfz70.4cm/sPV Peak Grad.3mmHg Tricuspid Valve TR P. Ehdyufnc646oe/sRAP YAFWAZRU2syIo TR Peak Gr.22chZyUQPR06bhHu Pulmonary Vein S1 Ekrzqnqh10.0cm/sD2 Kivivhpz04.6cm/s LEFT VENTRICLE The left ventricle is normal size. There is mild concentric left ventricular hypertrophy. The left ve ntricular systolic function is normal and the ejection fraction is within normal range. The Ejection Fraction is 55-60. There is normal LV segmental wall motion. Transmitral Doppler flow pattern is Grad e I-abnormal relaxation pattern. RIGHT VENTRICLE The right ventricle is normal size. There is normal right ventricular wall thickness. The right ventr icular systolic function is normal. There is a device lead in the right ventricle. ATRIA The left atrium is borderline dilated. The right atrium size is normal. The interatrial septum is int act with no evidence for an atrial septal defect or patent foramen ovale as noted on 2-D or Doppler i maging. AORTIC VALVE The aortic valve is calcified but opens well. Doppler and Color Flow revealed trace aortic regurgitat ion. There is no significant aortic valvular stenosis. Calculated aortic valve area is cm2 with maxim um pressure gradient of 12 mmHg and mean pressure gradient of 7 mmHg. MITRAL VALVE Mitral annular calcification is mild. There is no evidence of mitral valve prolapse. There is no mitr al valve stenosis. Doppler and Color-flow revealed trace mitral regurgitation. TRICUSPID VALVE The tricuspid valve is normal in structure and function. Doppler and Color Flow revealed trace tricus pid regurgitation with an estimated PAP of 28 mmHg. There is no tricuspid valve stenosis. PULMONIC VALVE The pulmonic valve is not well visualized. Doppler and Color Flow revealed trace pulmonic valvular re gurgitation. GREAT VESSELS The aortic root is normal in size. The IVC is normal in size and collapses >50% with inspiration. PERICARDIAL EFFUSION There is no evidence of significant pericardial effusion. Critical Notification Critical Value: No <Conclusion> The left ventricle is normal size. The left ventricular systolic function is normal and the ejection fraction is within normal range. The Ejection Fraction is 55-60. There is mild concentric left ventricular hypertrophy. Doppler and Color Flow revealed trace aortic regurgitation. There is no significant aortic valvular stenosis. Doppler and Color-flow revealed trace mitral regurgitation. Doppler and Color Flow revealed trace tricuspid regurgitation with an estimated PAP of 28 mmHg. Signed by : Osei Ramirez MD Electronically Approved : 10/28/2020 12:55:18
== END ==
LOC: ECHO 07:45
PROVIDERS: ATTEND Internal Medicine Cardiovascular Disease
DX: I08.0 Rheumatic disorders of both mitral and aortic valves (principal); I48.0 Paroxysmal atrial fibrillation
CPT/HCPCS: 93306

== ENCOUNTER → 2021-05-06 | Outpatient (CLI) | payer MEDICARE ==
[2019-02-28 11:10] VITALS: BP 169/96
--- NOTE | 2021-05-06 16:15 | RAD ---
Bilateral digital screening 2-D and 3-D (digital breast tomosynthesis) mammogram: Reason for examination: Routine screening. Comparison: Mammograms from 04/15/2020 and 04/12/2019. Interpretation was made with the benefit of CAD. FINDINGS: Breast density: Category A. Breast tissue is almost entirely fatty. No suspicious breast mass, malignant appearing calcifications, or architectural distortion is seen. IMPRESSION: No evidence of malignancy. Assessment: BI-RADS 1. Negative. Recommendation: Routine screening mammograms. The patient will receive a letter with the results in the mail. Patient information will be entered i nto the mammography reminder system with a target recall date for the next mammogram. A reminder philipp er will be generated. Electronically signed by: Rissa Fu MD (05/06/2021 4:13 PM) [id number]
== END ==
LOC: MAMMO 12:49
PROVIDERS: ATTEND Family Medicine
DX: Z12.31 Encounter for screening mammogram for malignant neoplasm of breast (principal)
CPT/HCPCS: 77063; 77067

== ENCOUNTER 2021-07-08 10:31 | Outpatient (CLI) | payer MEDICARE ==
[~2021-07-08] VITALS: Ht 165.1 cm; Wt 106.8 kg
[2021-07-08] VITALS (17 sets, daily range): BP systolic 145–226; BP diastolic 62–94
[2021-07-08] MEDS ORDERED: hydrALAZINE 20 MG/ML VIAL. ONE (11:25)
[2021-07-08] MEDS ORDERED: hydrALAZINE 20 MG/ML VIAL. IVP ONE (11:30)
[2021-07-08 11:35] LABS: CALCIUM 9.4 mg/dL (8.5-10.1); CREATININE 0.7 mg/dL (0.6-1.0); GFR 82.7; HEMATOCRIT 42.9 % (36.0-47.0); HEMOGLOBIN 14.2 g/dL (12.0-15.5); POTASSIUM 3.9 mmol/L (3.5-5.1); RED BLOOD COUNT 4.58 x10^6/uL (3.50-5.40); RED CELL DISTRIBUTION WIDTH 13.1 % (11.5-14.5); WHITE BLOOD COUNT 6.3 x10^3/uL (4.0-11.0)
[2021-07-08] MEDS ORDERED: VERA240C2 PO (11:37)
[2021-07-08 11:49] LABS: PROTHROMBIN TIME PATIENT 12.6 SEC (11.7-14.0)
[2021-07-08] MEDS ORDERED: IODIXANOL 320 MG/ML 100 ML VIAL. ONE (12:11)
[2021-07-08] MEDS ORDERED: LIDOCAINE 1% PF 2 ML VIAL. ONE (12:11)
[2021-07-08] MEDS ORDERED: fentaNYL PF VIAL 100 MCG/2 ML VIAL ONE (13:15)
[2021-07-08] MEDS ORDERED: NITROGLYCERIN 200 MCG/2 ML SYRINGE FOR CATH/VASC LAB. ONE (13:16)
[2021-07-08] MEDS ORDERED: VERAPAMIL 5 MG/2 ML VIAL. ONE (13:16)
[2021-07-08] MEDS ORDERED: HEPARIN for IV BOLUS 10,000 UNIT/10 ML VIAL. ONE (13:16)
[2021-07-08] MEDS ORDERED: MIDAZOLAM HCL/PF 2 MG/2 ML VIAL. ONE (13:16)
[2021-07-08] MEDS ORDERED: HEPARIN for IV BOLUS 10,000 UNIT/10 ML VIAL. IART ONE (13:30)
[2021-07-08] MEDS ORDERED: IODIXANOL 320 MG/ML 100 ML VIAL. IART ONE (13:30)
[2021-07-08] MEDS ORDERED: fentaNYL PF VIAL 100 MCG/2 ML VIAL IV ONE (13:30)
[2021-07-08] MEDS ORDERED: LIDOCAINE 1% PF 2 ML VIAL. INJ ONE (13:30)
[2021-07-08] MEDS ORDERED: VERAPAMIL 5 MG/2 ML VIAL. IART ONE (13:30)
[2021-07-08] MEDS ORDERED: MIDAZOLAM HCL/PF 2 MG/2 ML VIAL. IV ONE (13:30)
[2021-07-08] MEDS ORDERED: NITROGLYCERIN 200 MCG/2 ML SYRINGE FOR CATH/VASC LAB. IART ONE (13:30)
[2021-07-08] MEDS ORDERED: CONTRAST GIVEN. MC PRN (14:15)
--- NOTE | 2021-07-08 15:17 | CARD ---
MR#: [id number] Date of Study: 07/08/2021 Ordering Physician: JACKIE POON, Referring Physician: JACKIE POON, Tech: RT Flaco(R) APPROVED REPORT Technologist: RT Flaco(R) Nurse: Janelle Cox RN Procedure(s) performed: 25MIN MODERATE SEDATION FT 2.6 43 CONTRAST 49.5GYMC2 494 DOSE LHC, coronary angiography INDICATION The indication(s) include : positive stress test. [facility] Clinical Frailty Scale [facility] Clinical Frailty Scale: Mildly Frail Heart Failure Heart Failure: Yes If Yes, Newly Diagnosed: No If Yes, HF Type: Diastolic If Yes, NYHA Class: Class II CASE TECHNIQUE IV conscious sedation was used throughout procedure with appropriate monitoring and was performed in the presence of a registered nurse who was an independent trained observer other than the physician p erforming the procedure. During this case, Fluoroscopy and low osmolar contrast were used for imaging . Specimen(s) Removed: N/A Estimated Blood loss: 15 cc's. PROCEDURE NARRATIVE Clinical information: 70-year-old woman presents to the Accounts Receivable Analyst for dyspnea and abnormal stress test. Informed consent: Written informed consent was obtained from the patient after adequate discussion of the risks and mary efits of the procedure. Procedure details: ACCESS: The right wrist was prepped and draped in usual sterile fashion. Under 1% lidocaine local anesthesia a 6 [place] Terumo sheath was placed in the right radial artery via the Seldinger technique. DIAGNOSTIC ANGIOGRAPHY: Right and left coronary arteries were engaged with a 6 [place] TIG catheter. Diagnostic angiography i n multiple views were obtained. Next, a 6 [place] TIG catheter was placed in the left ventricle and a LVEDP was measured. A pullback was performed. All catheters were exchanged over J-tip guidewire. FINDINGS: ======= Aorta: 140/80 LVEDP: 15 mmHg Left ventriculogram: Deferred due to known normal LV systolic function on recent stress testing Coronary angiography: LM: Large caliber vessel with normal angiographic appearance LAD: Moderate caliber tortuous vessel with mild luminal irregularities of up to 30% and tapers to a s mall caliber distally. Ramus: Moderate caliber vessel with mild luminal irregularities. LCX: Moderate caliber non-dominant vessel with mild luminal irregularities OM1: Small caliber tortuous vessel with mild luminal irregularities RCA: Large caliber dominant tortuous vessel with mild diffuse irregularities of up to 30% RPDA: Moderate caliber dominant vessel that feeds the apex with mild luminal irregularities CLOSURE: At case completion the right radial sheath was removed and a Terumo radial band was applied with 11 m L of air. Hemostasis was achieved. COMPLICATIONS: No acute complications noted Conclusion 1. Normal left-sided filling pressures 2. One-vessel coronary artery disease with a patent distal RCA stent Recommendations Aggressive Medical Therapy Weight Loss Reduction Program Signed by : Jackie Poon, Electronically Approved : 07/08/2021 15:16:35
--- NOTE | 2021-07-08 16:23 | NUR ---
Discharge Note: JARROD MORTON Discharge instructions and discharge home medications reviewed with Patient and a copy given. All questions have been answered and understanding verbalized. Dressing to R wrist dry and intact, armboard in place. The following instructions and handouts were given: radial site care, sedation Pt instructed to restart Xarelto tomorrow and Metformin Wednesday. Discontinued lines and drains: Peripheral IV intact. Patient discharged to Home or Self Care with Family Member via Wheelchair [facility] Addendum: 07/08/21 at 1626 by DAVID VILLA RN Amended: Links added.
== END 2021-07-08 16:15 | disposition home or self-care (01) ==
LOC: CCL 10:31
PROVIDERS: ATTEND Internal Medicine Cardiovascular Disease
DX: R06.09 Other forms of dyspnea (principal); I25.10 Atherosclerotic heart disease of native coronary artery without angina pectoris; R94.39 Abnormal result of other cardiovascular function study; I10 Essential (primary) hypertension; I48.91 Unspecified atrial fibrillation; E78.00 Pure hypercholesterolemia, unspecified; E66.9 Obesity, unspecified; E11.9 Type 2 diabetes mellitus without complications; Z79.82 Long term (current) use of aspirin; Z79.84 Long term (current) use of oral hypoglycemic drugs; Z79.899 Other long term (current) drug therapy; Z87.891 Personal history of nicotine dependence; Z98.890 Other specified postprocedural states; Z88.8 Allergy status to other drugs, medicaments and biological substances
CPT/HCPCS: 36415; 80048; 85027; 85610; 93458; 99152; 99153; C1769; C1894; J0360; J1644; J2250; J3010; J3490; Q9967

== ENCOUNTER 2021-07-20 10:34 | Emergency (ER) | payer MEDICARE ==
[~2021-07-20] VITALS: Ht 167.6 cm; Wt 106.0 kg
[~2021-07-20 10:34] MED LIST changes: +VERA240C2 PO
[2021-07-20 11:29] LABS: BILIRUBIN,URINE NEGATIVE (NEG); CLARITY,URINE CLOUDY; COLOR,URINE AMBER; NITRITE,URINE NEGATIVE (NEG); PH,URINE 5.5 (<5.0-8.0); PROTEIN,URINE NEGATIVE (NEG-TRACE); UROBILINOGEN,URINE 0.2 mg/dL (0.2 mg/dL)
[2021-07-20 11:55] LABS: HYALINE CASTS, URINE OCCASIONAL /HPF; RBC,URINE TNTC /HPF (0-2)
[2021-07-20 11:56] LABS: BACTERIA,URINE MODERATE /HPF (0-FEW)
[2021-07-20 12:04] LABS: BASO # 0.1 x10^3/uL (0.0-0.2); BASO % 1 % (0-3); EOS # 0.2 x10^3/uL (0.0-0.7); EOS % 2 % (0-3); HEMATOCRIT 43.4 % (36.0-47.0); HEMOGLOBIN 14.8 g/dL (12.0-15.5); LYMPH # 1.8 x10^3/uL (1.0-4.8); LYMPH % 19 % (24-48); MEAN CORPUSCULAR HEMOGLOBIN 32 pg (25-35); MEAN CORPUSCULAR HGB CONC 34 g/dL (31-37); MEAN CORPUSCULAR VOLUME 93 fL (79-100); MONO # 0.7 x10^3/uL (0.0-1.1); MONO % 8 % (0-9); NEUT # 6.4 x10^3/uL (1.8-7.7); NEUT % 70 % (31-73); PLATELET COUNT 206 x10^3/uL (140-400); RED BLOOD COUNT 4.69 x10^6/uL (3.50-5.40); RED CELL DISTRIBUTION WIDTH 12.9 % (11.5-14.5); WHITE BLOOD COUNT 9.2 x10^3/uL (4.0-11.0)
[2021-07-20 12:14] LABS: CALCIUM 9.5 mg/dL (8.5-10.1); CREATININE 1.3 mg/dL (0.6-1.0); GFR 40.5; POTASSIUM 4.4 mmol/L (3.5-5.1)
[2021-07-20 12:20] LABS: ALBUMIN 3.8 g/dL (3.4-5.0); ALBUMIN/GLOBULIN RATIO 0.8 (1.0-1.7); TOTAL BILIRUBIN 1.3 mg/dL (0.2-1.0); TOTAL PROTEIN 8.5 g/dL (6.4-8.2)
--- NOTE | 2021-07-20 12:38 | PHYS DOC ---
Past Medical History Past Medical History: Anxiety, Arthritis, Depression, Diabetes-Type II, High Cholesterol, Hypertension Additional Past Medical Histor: GOUT Past Surgical History: Tonsillectomy Additional Past Surgical Histo: THYROID CYST REMOVAL Smoking Status: Former Smoker Alcohol Use: None Drug Use: None General Adult EDM: Chief Complaint: BACK PAIN - NO INJURY HPI: HPI: Patient is a 70 year old female who presents with low back pain. Reports 7 days ago began having vaginal spotting. The spotting then increased and she passed several clots and had. Levels of bleeding for approximately 3 days. The bleeding has since stopped and has not returned. This morning began having low back pain. It is a dull ache. Its on both sides of the lower back. She also noticed that her urine began having a darker color today. Denies abdominal pain, nausea, vomiting, bowel changes. Normal appetite. No fevers or chills. No vaginal discharge. No dysuria, urgency or frequency. Patient is postmenopausal and has not had vaginal bleeding in approximately 20 years. She saw her PCP about the vaginal bleeding and was referred to Dr. Fatima of gynecology. She has a pelvic ultrasound appointment for Tuesday 07/25, and an OB follow-up appointment on Friday 07/28. Review of Systems: Review of Systems: Constitutional: Denies fever or chills. [] Eyes: Denies change in visual acuity. [] HENT: Denies nasal congestion or sore throat. [] Respiratory: Denies cough or shortness of breath. [] Cardiovascular: Denies chest pain or edema. [] GI: Denies abdominal pain, nausea, vomiting, bloody stools or diarrhea. [] : Denies dysuria. Reports dark urine. Reports recent postmenopausal vaginal bleeding [] Musculoskeletal: Reports low back pain Integument: Denies rash. [] Neurologic: Denies headache, focal weakness or sensory changes. [] Endocrine: Denies polyuria or polydipsia. [] Lymphatic: Denies swollen glands. [] Psychiatric: Denies depression or anxiety. [] Heart Score: C/O Chest Pain: No Allergies: Allergies: Allergies Coded Allergies Type Severity Reaction Last Updated Verified zinc Allergy Severe Anaphylaxis 02/28/19 Yes Physical Exam: PE: Constitutional: Well developed, well nourished, no acute distress, non-toxic appearance. [] HENT: Normocephalic, atraumatic, bilateral external ears normal, oropharynx moist, no oral exudates, nose normal. [] Eyes: PERRLA, EOMI, conjunctiva normal, no discharge. [] Neck: Normal range of motion, no tenderness, supple, no stridor. [] Cardiovascular:Heart rate regular rhythm, no murmur [] Lungs & Thorax: Bilateral breath sounds clear to auscultation [] Abdomen: Soft, nondistended, nontender. Pelvic: [employer] with RIVAS Willis. External genitalia normal. No active bl eeding, thin whitish discharge. Cervix was partially visualized, appeared red/kenn and hypervascular concerning for mass. Tender to probing. [] Back: No tenderness, no CVA tenderness. [] Extremities: No tenderness, no cyanosis, no clubbing, ROM intact, no edema. [] Neurologic: Alert and oriented X 3, normal motor function, normal sensory function, no focal deficits noted. [] Psychologic: Affect normal, judgement normal, mood normal. [] Current Patient Data: Labs: Laboratory Tests Test 07/20/21 11:20 07/20/21 11:47 Urine Collection Type Unknown Urine Color Estelita Urine Clarity Cloudy Urine pH 5.5 (<5.0-8.0) Urine Specific Lupton 1.015 (1.000-1.030) Urine Protein Negative mg/dL (NEG-TRACE) Urine Glucose (UA) >=1000 mg/dL (NEG) Urine Ketones (Stick) Negative mg/dL (NEG) Urine Blood Large (NEG) Urine Nitrite Negative (NEG) Urine Bilirubin Negative (NEG) Urine Urobilinogen Dipstick 0.2 mg/dL (0.2 mg/dL) Urine Leukocyte Esterase Moderate (NEG) Urine RBC Tntc /HPF (0-2) Urine WBC 5-10 /HPF (0-4) Urine Squamous Epithelial Cells Few /LPF Urine Bacteria Moderate /HPF (0-FEW) Urine Hyaline Casts Occasional /HPF Urine Mucus Slight /LPF White Blood Count 9.2 x10^3/uL (4.0-11.0) Red Blood Count 4.69 x10^6/uL (3.50-5.40) Hemoglobin 14.8 g/dL (12.0-15.5) Hematocrit 43.4 % (36.0-47.0) Mean Corpuscular Volume 93 fL (79-100) Mean Corpuscular Hemoglobin 32 pg (25-35) Mean Corpuscular Hemoglobin Concent 34 g/dL (31-37) Red Cell Distribution Width 12.9 % (11.5-14.5) Platelet Count 206 x10^3/uL (140-400) Neutrophils (%) (Auto) 70 % (31-73) Lymphocytes (%) (Auto) 19 % (24-48) L Monocytes (%) (Auto) 8 % (0-9) Eosinophils (%) (Auto) 2 % (0-3) Basophils (%) (Auto) 1 % (0-3) Neutrophils # (Auto) 6.4 x10^3/uL (1.8-7.7) Lymphocytes # (Auto) 1.8 x10^3/uL (1.0-4.8) Monocytes # (Auto) 0.7 x10^3/uL (0.0-1.1) Eosinophils # (Auto) 0.2 x10^3/uL (0.0-0.7) Basophils # (Auto) 0.1 x10^3/uL (0.0-0.2) Sodium Level 137 mmol/L (136-145) Potassium Level 4.4 mmol/L (3.5-5.1) Chloride Level 99 mmol/L (98-107) Carbon Dioxide Level 24 mmol/L (21-32) Anion Gap 14 (6-14) Blood Urea Nitrogen 28 mg/dL (7-20) H Creatinine 1.3 mg/dL (0.6-1.0) H Estimated GFR (Cockcroft-Gault) 40.5 BUN/Creatinine Ratio 22 (6-20) H Glucose Level 269 mg/dL (70-99) H Calcium Level 9.5 mg/dL (8.5-10.1) Total Bilirubin 1.3 mg/dL (0.2-1.0) H Aspartate Amino Transferase (AST) 16 U/L (15-37) Alanine Aminotransferase (ALT) 23 U/L (14-59) Alkaline Phosphatase 107 U/L (46-116) Total Protein 8.5 g/dL (6.4-8.2) H Albumin 3.8 g/dL (3.4-5.0) Albumin/Globulin Ratio 0.8 (1.0-1.7) L Laboratory Tests 07/20/21 11:47 Laboratory Tests 07/20/21 11:47 Laboratory Tests Test 07/20/21 11:20 07/20/21 11:47 Urine Collection Type Unknown Urine Color Estelita Urine Clarity Cloudy Urine pH 5.5 Urine Specific Lupton 1.015 Urine Protein Negative mg/dL Urine Glucose (UA) >=1000 mg/dL Urine Ketones (Stick) Negative mg/dL Urine Blood Large Urine Nitrite Negative Urine Bilirubin Negative Urine Urobilinogen Dipstick 0.2 mg/dL Urine Leukocyte Esterase Moderate Urine RBC Tntc /HPF Urine WBC 5-10 /HPF Urine Squamous Epithelial Cells Few /LPF Urine Bacteria Moderate /HPF Urine Hyaline Casts Occasional /HPF Urine Mucus Slight /LPF White Blood Count 9.2 x10^3/uL Red Blood Count 4.69 x10^6/uL Hemoglobin 14.8 g/dL Hematocrit 43.4 % Mean Corpuscular Volume 93 fL Mean Corpuscular Hemoglobin 32 pg Mean Corpuscular Hemoglobin Concent 34 g/dL Red Cell Distribution Width 12.9 % Platelet Count 206 x10^3/uL Neutrophils (%) (Auto) 70 % Lymphocytes (%) (Auto) 19 % Monocytes (%) (Auto) 8 % Eosinophils (%) (Auto) 2 % Basophils (%) (Auto) 1 % Neutrophils # (Auto) 6.4 x10^3/uL Lymphocytes # (Auto) 1.8 x10^3/uL Monocytes # (Auto) 0.7 x10^3/uL Eosinophils # (Auto) 0.2 x10^3/uL Basophils # (Auto) 0.1 x10^3/uL Sodium Level 137 mmol/L Potassium Level 4.4 mmol/L Chloride Level 99 mmol/L Carbon Dioxide Level 24 mmol/L Anion Gap 14 Blood Urea Nitrogen 28 mg/dL Creatinine 1.3 mg/dL Estimated GFR (Cockcroft-Gault) 40.5 BUN/Creatinine Ratio 22 Glucose Level 269 mg/dL Calcium Level 9.5 mg/dL Total Bilirubin 1.3 mg/dL Aspartate Amino Transf (AST/SGOT) 16 U/L Alanine Aminotransferase (ALT/SGPT) 23 U/L Alkaline Phosphatase 107 U/L Total Protein 8.5 g/dL Albumin 3.8 g/dL Albumin/Globulin Ratio 0.8 EKG: EKG: [] Radiology/Procedures: Radiology/Procedures: [] Impression: [facility] [address] [place], [place] [id number] IMAGING REPORT Signed PATIENT: JARROD MORTON ACCOUNT: [id number] : 1950 LOCATION: ER AGE: 70 SEX: F EXAM STATUS: REG ER ORD. PHYSICIAN: SENAIT BERUMEN MD REASON: post-menopausal vaginal bleeding, low back pain;SONO CALLED PROCEDURE: PELVIS W/TV EXAMINATION: US PELVIS W/TV INDICATION: 70 years, Female, postmenopausal vaginal bleeding, low back pain. COMPARISON: None TECHNIQUE: Trans abdominal and transvaginal ultrasound of the pelvis was performed with grayscale, spectral, and color doppler imaging. FINDINGS: LMP: 20 years ago. UTERUS: Position: Anteverted, anteflexed Measures: 6.3 x 4.2 x 3.4 cm. Uterine/Endometrial Morphology: There is a 1.8 x 1.1 x 1.2 cm ill-defined hypoechoic lesion in the left posterior uterine body, suggesting of intramural fibroid. Endometrial Thickness: 0.8 cm, demonstrates heterogeneous echotexture with cystic changes. Bilateral ovaries are not visualized, due to overlying bowel gas. OTHER: Fluid/Cul-De-Sac: None. IMPRESSION: 1. Thickened endometrium measures 8mm, demonstrates heterogeneous echotexture with cystic changes. Differential includes endometrial hyperplasia versus carcinoma. Recommend further evaluation with direct visualization and tissue sampling. 2. Ill-defined 1.8 cm hypoechoic lesion in the left posterior uterine body, suggesting of an intramural fibroid. 3. Ovaries are not visualized, obscured by overlying bowel gas. Electronically signed by: Shantelle Baird MD (07/20/2021 2:36 PM) [id number] DICTATED and SIGNED BY: SHANTELLE BAIRD MD DATE: 07/20/21 [id number] 0 Course & Med Decision Making: Course & Med Decision Making Pertinent Labs and Imaging studies reviewed. (See chart for details) Patient is 70-year-old female who presents with recent postmenopausal vaginal bleeding, now with back pain and dark urine. Vital signs stable and well-appearing on exam. Pelvic exam with a hypervascular, dark red appearing cervix concerning for cervical mass. No active bleeding. Pelvic ultrasound pending. 1238 Pelvic ultrasound shows thickened endometrial lining, 8 mm, with cystic heterogenous appearance concerning for hyperplasia versus endometrial carcinoma. Patient counseled on these findings as well as my concerns about her cervical exam. Fortunately she has OB follow-up on 07/28. Urine also shows RBCs without significant WBCs. No dysuria, urgency, frequency to suggest urinary tract infection. Patient counseled on this finding and asked to follow-up with PCP for repeat urinalysis and consideration of further testing pending results Patient's back pain has not recurred since Tylenol this morning. Doubt kidney stone. Do not feel that further imaging in the emergency department is indicated at this time. 1502 Dragon Disclaimer: Dragon Disclaimer: This electronic medical record was generated, in whole or in part, using a voice recognition dictation system. Departure Departure Impression: Primary Impression: Cervix abnormality Additional Impressions: Endometrial thickening on ultrasound Abnormal uterine bleeding (AUB) Hematuria Disposition: HOME / SELF CARE / HOMELESS Condition: STABLE Referrals: TYLER ACHARYA MD (PCP) Schedule an appointment to discuss the blood that was found in your urine. You will likely need repeat urine testing, and potentially more testing if it continues to happen. TYLER FATIMA MD Schedule an appointment to discuss the thickening of your uterus lining as well as the abnormal appearance of your cervix on my exam. Additional Instructions: Your work-up today showed several concerning findings including blood in your urine, a thickened uterine lining, and an abnormal appearance of your cervix. Please follow-up with your primary care doctor for consideration of repeat testing of your urine to see if the blood persist. You may need further work-up if you continue to have blood in your urine. It is imperative that you follow-up with Dr. Fatima regarding your abnormal uterine and cervix findings in the emergency department. Please call his office to alert them of his findings and keep your appointment for 07/28. If you develop recurrent pain, high fevers, chills, or other new/concerning symptoms you can return to the emergency department at any time for reevaluation. SENAIT BERUMEN MD Jul 20, 2021 12:38
--- NOTE | 2021-07-20 14:38 | RAD ---
EXAMINATION: US PELVIS W/TV INDICATION: 70 years, Female, postmenopausal vaginal bleeding, low back pain. COMPARISON: None TECHNIQUE: Trans abdominal and transvaginal ultrasound of the pelvis was performed with grayscale, sp ectral, and color doppler imaging. FINDINGS: LMP: 20 years ago. UTERUS: Position: Anteverted, anteflexed Measures: 6.3 x 4.2 x 3.4 cm. Uterine/Endometrial Morphology: There is a 1.8 x 1.1 x 1.2 cm ill-defined hypoechoic lesion in the le ft posterior uterine body, suggesting of intramural fibroid. Endometrial Thickness: 0.8 cm, demonstrates heterogeneous echotexture with cystic changes. Bilateral ovaries are not visualized, due to overlying bowel gas. OTHER: Fluid/Cul-De-Sac: None. IMPRESSION: 1. Thickened endometrium measures 8mm, demonstrates heterogeneous echotexture with cystic changes. Di fferential includes endometrial hyperplasia versus carcinoma. Recommend further evaluation with direc t visualization and tissue sampling. 2. Ill-defined 1.8 cm hypoechoic lesion in the left posterior uterine body, suggesting of an intramur al fibroid. 3. Ovaries are not visualized, obscured by overlying bowel gas. Electronically signed by: Micky Baird MD (07/20/2021 2:36 PM) [id number]
[2021-07-20 15:23] VITALS: BP 139/63
== END 2021-07-20 15:28 | disposition home or self-care (01) ==
LOC: ER 10:34
DX: N93.9 Abnormal uterine and vaginal bleeding, unspecified (principal); E11.9 Type 2 diabetes mellitus without complications; R31.9 Hematuria, unspecified; N88.9 Noninflammatory disorder of cervix uteri, unspecified; I10 Essential (primary) hypertension; E78.00 Pure hypercholesterolemia, unspecified; Z87.891 Personal history of nicotine dependence; Z88.8 Allergy status to other drugs, medicaments and biological substances; R93.89 Abnormal findings on diagnostic imaging of other specified body structures
CPT/HCPCS: 36415; 76830; 76856; 80053; 81001; 85025; 87086; 99285-25

== ENCOUNTER 2021-08-22 06:31 | Day surgery (SDC) | payer MEDICARE ==
[~2021-08-22] VITALS: Ht 167.6 cm; Wt 104.5 kg
[~2021-08-22 06:31] MED LIST changes: +HYDROmorphone 2 MG/ML INJ. IVP PRN; +IV RINGERS,LACTATED 1000ML 1,000 ML IV SCH; +MORPHINE SULFATE 2 MG/ML INJ. IVP PRN; +PROCHLORPERAZINE 10 MG/2 ML VIAL. IVP PRN; +fentaNYL PF VIAL 100 MCG/2 ML VIAL IVP PRN
[2021-08-22 06:49] VITALS: BP 165/72
[2021-08-22] MEDS: INSULIN LISPRO 100 UNIT/ML 3ML VIAL for OP,RR ONLY. SQ PRN ×2 (07:23→08:49)
[2021-08-22] MEDS ORDERED: LIDOCAINE 2% PF 5 ML VIAL. ONE (07:30)
[2021-08-22] MEDS ORDERED: fentaNYL PF VIAL 100 MCG/2 ML VIAL ONE (07:30)
[2021-08-22] MEDS ORDERED: PROPOFOL 10 MG/ML (20ML) VIAL. IV ONE (07:30)
[2021-08-22] MEDS ORDERED: ONDANSETRON PF 4 MG/2 ML VIAL. ONE (07:32)
[2021-08-22] MEDS ORDERED: DEXAMETHASONE SOD PHOS 4 MG/ML VIAL ONE (07:32)
[2021-08-22 07:34] LABS: BASO # 0.1 x10^3/uL (0.0-0.2); BASO % 1 % (0-3); EOS # 0.2 x10^3/uL (0.0-0.7); EOS % 3 % (0-3); HEMOGLOBIN 13.5 g/dL (12.0-15.5); LYMPH # 2.6 x10^3/uL (1.0-4.8); LYMPH % 31 % (24-48); MEAN CORPUSCULAR HEMOGLOBIN 30 pg (25-35); MEAN CORPUSCULAR HGB CONC 33 g/dL (31-37); MEAN CORPUSCULAR VOLUME 92 fL (79-100); MONO # 0.7 x10^3/uL (0.0-1.1); MONO % 8 % (0-9); NEUT # 4.8 x10^3/uL (1.8-7.7); NEUT % 57 % (31-73); PLATELET COUNT 196 x10^3/uL (140-400); RED BLOOD COUNT 4.44 x10^6/uL (3.50-5.40); RED CELL DISTRIBUTION WIDTH 12.6 % (11.5-14.5); WHITE BLOOD COUNT 8.5 x10^3/uL (4.0-11.0)
[2021-08-22] MEDS ORDERED: ePHEDrine PF IN SALINE 50 MG/10 ML SYRINGE. IV ONE (08:13)
[2021-08-22] MEDS ORDERED: PHENYLEPHRINE in 0.9% NACL PF 1 MG/10 ML SYRINGE. IV ONE (08:13)
[2021-08-22] MEDS ORDERED: INSULIN LISPRO 100 UNIT/ML 3ML VIAL for OP,RR ONLY. SQ ONE ×2 (09:00)
[2021-08-22 09:07] VITALS: BP 118/67
--- NOTE | 2021-08-22 09:09 | PDOC4 ---
OPERATIVE NOTE: PreOp Dx: 1.) PMB, 2.) A-fib - pacemaker in place, 3.) HTN, 4.) DM PostOp Dx: same, 5.) cervical polyp, 6.) Endometrial polyp/fibroid Procedure: H/S, Myosure, D&C Surgeon: Farshad Mendoza Anesthesia: GETA EBL: 10 cc Fluids: 500 cc UOP: 50 cc Findings: cervical and endometrial polyp/fibroid Complications: none Path: cervical and endometrial polyp/fibroid, and endometrial curetting TYLER MENDOZA MD Aug 22, 2021 09:09
[2021-08-22] MEDS ORDERED: DOCU-109 PO (09:14)
[2021-08-22] MEDS ORDERED: OXYC1TAB15 PO (09:14)
--- NOTE | 2021-08-22 10:08 | OP ---
DATE OF SURGERY: 08/22/2021 PREOPERATIVE DIAGNOSES: 1. Postmenopausal bleeding. 2. Atrial fibrillation with a pacemaker in place. 3. Hypertension. 4. Diabetes. POSTOPERATIVE DIAGNOSES: 1. Postmenopausal bleeding. 2. Atrial fibrillation with a pacemaker in place. 3. Hypertension. 4. Diabetes. 5. Cervical polyp. 6. Endometrial polyp versus fibroid. PROCEDURES: Hysteroscopy, dilation and curettage and MyoSure. SURGEON: Jose Fatima MD ANESTHESIA: General endotracheal intubation. ESTIMATED BLOOD LOSS: 10 mL. FLUIDS: 500 mL. URINE OUTPUT: 50 mL. COMPLICATIONS: None. FINDINGS: Cervical and endometrial polyp versus fibroid. PATHOLOGY: Cervical and endometrial polyp and endometrial curettings. DESCRIPTION OF PROCEDURE: The patient was taken to the operating room where LMA was placed without difficulty. The patient was prepped and draped in a normal sterile fashion. A speculum was placed in the patient's vagina to visualize the cervix. A single-tooth tenaculum was then placed on the anterior lip of the cervix. The cervix was then dilated to allow for the hysteroscope to be placed. Once the hysteroscope was placed into the endometrial cavity, both ostia were visualized just right of midline. There was a large fibroid arising from the fundus of the uterus that appeared approximately like 2 x 2 cm. At that point, the lesion was shaved down with the MyoSure device. Once it was removed, the cervical polyp that was noted on entry was shaved down as well. After this had been completed, curetting was performed and a sample was collected. At that point, the procedure was terminated. The tenaculum was removed. There was minimal bleeding at the tenaculum site. Good hemostasis was noted. At that point, the patient was taken to recovery room in stable condition. LYNDA/INOCENCIA/BREEZY DR: Tete TID: [id number]
--- NOTE | 2021-08-25 17:14 | PATHOLOGY ---
[facility] Accession Number: [id number] . 01 Material submitted: . endometrium - MYOSURE, ENDOMETRIAL CURETTINGS . 01 Clinical history: . MENORRHAGIA MYOSURE, HYSTEROSCOPY, D/C . 02 Diagnosis: Endometrial curettings: - Endometrial polyp and segments of disordered proliferative endometrium. - Endocervical polyp. (JPM:tom; 08/25/2021) [facility] 08/25/2021 1427 Local . 02 Comment: There is no atypia or evidence of malignancy. (WINDYM:tom; 08/25/2021) . 02 Electronically signed: . Jer Berg MD, Pathologist NPI- [id number] . 01 Gross description: . Received in formalin labeled "Annabelle, Anna, myosure, endometrial curettings" is a 3.0 x 2.5 x 0.3 cm aggregate of balbuena-brown friable soft tissue fragments. The specimen is submitted entirely in A1. ([facility]; 08/23/2021) [facility] 08/23/2021 1006 Local . 02 Pathologist provided ICD-10: N84.0, N85.9, N84.1 . 02 CPT . 236418 Specimen Comment: A courtesy copy of this report has been sent to [phone], [phone] Specimen Comment: [id number] Specimen Comment: Report sent to / DR ACHARYA Performed at: 01 [facility] [address], [place] [id number] MD Julien Sue MD Phone: [phone] Performed at: 02 [facility] [address] [place], [place] [id number] MD Jer Berg MD Phone: [phone]
== END 2021-08-22 09:47 | disposition home or self-care (01) ==
LOC: SURG 06:31
PROVIDERS: ATTEND Obstetrics & Gynecology
DX: N95.0 Postmenopausal bleeding (principal); N84.0 Polyp of corpus uteri; N84.1 Polyp of cervix uteri; I48.91 Unspecified atrial fibrillation; I10 Essential (primary) hypertension; E11.9 Type 2 diabetes mellitus without complications; I25.10 Atherosclerotic heart disease of native coronary artery without angina pectoris; E78.00 Pure hypercholesterolemia, unspecified; M19.90 Unspecified osteoarthritis, unspecified site; E66.9 Obesity, unspecified; Z87.440 Personal history of urinary (tract) infections; Z79.82 Long term (current) use of aspirin; Z79.84 Long term (current) use of oral hypoglycemic drugs; Z79.899 Other long term (current) drug therapy; Z98.890 Other specified postprocedural states; Z88.8 Allergy status to other drugs, medicaments and biological substances; Z87.891 Personal history of nicotine dependence
CPT/HCPCS: 36415; 58558; 82962; 85025; 86850; 86900; 86901; A4930; J1100; J1815; J2370; J2405; J2704; J3010